=== PATIENT | female | born 1995 | race American Indian/Alaskan Native ===

== ENCOUNTER 2017-10-11 15:53 | Emergency (ER) | payer BC ==
[2017-10-11 17:50] LABS: Bilirubin,Urine NEG (Negative); Blood,Urine NEG (Negative); Ketones,Urine NEG (Negative); Leukocyte Esterase,Urine MOD (Negative); Mucus,Urine FEW /HPF; Nitrite,Urine NEG (Negative); Protein,Urine <15 mg/dL mg/dL (Negative); Urobilinogen,Urine < 2.0 mg/dL (<2.0)
[2017-10-11] MEDS ORDERED: MOTRIN PO ONE (17:58)
[2017-10-11 18:08] LABS: Hemoglobin 12.4 gm/dl (10.1-14.3); Mean Corpuscular HGB Conc 34 % (30-34); Mean Corpuscular Hemoglobin 31 pg (28-32); Mean Corpuscular Volume 91 fl (79-97); Red Blood Count 4.08 M/mm3 (3.65-5.03); Red Cell Distribution Width 13.2 % (13.2-15.2); White Blood Count 5.7 K/mm3 (4.5-11.0)
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
[2017-10-11 18:12] LABS: Basophils % (Auto) 0.6 % (0.0-1.8); Eosinophils % (Auto) 2.7 % (0.0-4.3)
[2017-10-11 18:13] LABS: Anion Gap 15 mmol/L; BUN/Creatinine Ratio 14; Blood Urea Nitrogen 11 mg/dL (7-17); Carbon Dioxide 28 mmol/L (22-30); Glucose 82 mg/dL (65-100); Potassium 4.3 mmol/L (3.6-5.0); Sodium 140 mmol/L (137-145)
[2017-10-11 18:37] VITALS: BP 104/66
[2017-10-11 18:39] LABS: Basophils % (Auto) 0.4 % (0.0-1.8); Hematocrit 35.7 % (30.3-42.9); Hemoglobin 12.3 gm/dl (10.1-14.3); Mean Corpuscular HGB Conc 34 % (30-34); Mean Corpuscular Hemoglobin 31 pg (28-32); Mean Corpuscular Volume 89 fl (79-97); Platelet Count 216 K/mm3 (140-440); Red Blood Count 4.01 M/mm3 (3.65-5.03); Red Cell Distribution Width 12.7 % (13.2-15.2); White Blood Count 7.2 K/mm3 (4.5-11.0)
== END 2017-10-11 19:35 | disposition home or self-care (01) ==
LOC: ED 15:53
DX: S13.4XXA Sprain of ligaments of cervical spine, initial encounter (principal); N39.0 Urinary tract infection, site not specified; R42 Dizziness and giddiness; V89.2XXA Person injured in unspecified motor-vehicle accident, traffic, initial encounter; Y93.9 Activity, unspecified; Y99.9 Unspecified external cause status; Y92.410 Unspecified street and highway as the place of occurrence of the external cause
CPT/HCPCS: 36415; 80048; 81001; 84703; 85025; 99283

== ENCOUNTER 2020-11-18 16:17 | Outpatient (CLI) | payer BC ==
[2020-11-18 17:43] LABS: Hepatitis B Surface Antigen Non-Reactive (Negative); Hepatitis C Virus Antibody Non-Reactive (NonReactive)
[2020-11-24 14:22] LABS: HIV-2 Antibody Differentiation SEE SCANNED RESULT
[2020-11-24 14:23] LABS: HIV-1 Antibody Differentiation SEE SCANNED RESULT
== END 2020-11-18 16:18 | disposition home or self-care (01) ==
LOC: LAB 16:17
DX: A74.9 Chlamydial infection, unspecified (principal); A54.9 Gonococcal infection, unspecified
CPT/HCPCS: 36415; 80074; 86592; 86689; 87591

== ENCOUNTER 2022-05-02 13:32 | Outpatient (CLI) | payer BC ==
--- NOTE | 2022-05-03 08:53 | Cat Scan Report ---
CT NECK WITH INTRAVENOUS CONTRAST AND MULTIPLANAR RECONSTRUCTION CLINICAL HISTORY: R59.0 SOFT TISSUE NECK TECHNIQUE: 2.5 mm thick contiguous axial scans were obtained from the skull base down to the aortic arch during intravenous contrast administration. In addition to evaluation of axial source images sagittal and co edy multiplanar reconstructions were produced and reviewed for this report. CONTRAST DOSE REPORT: : administered intravenously. All CT imaging studies performed at this facility utilize dose modulation, iterative reconstruction o r weight based dosing, if appropriate, to obtain the lowest achievable radiation dose. FINDINGS: Limitations: This is an incomplete study which does not include the aortic arch. History of enlarged lymph node on the neck is noted. There does not appear to have been placement of a skin marker to hamzah ntify the region of clinical concern. AIRWAY: No abnormalities are seen along the course of the airway. Nasopharynx, oropharynx, hypopharyn x, larynx and visualized portions of the subglottic airway all have an unremarkable appearance. LYMPH NODES: Borderline sized lymph nodes are seen in level 2 bilaterally. There is no indication of cervical lymphadenopathy. The site of clinical concern was not identified history provided or with th e aid of a skin marker. Correlation with the location of clinical concern is suggested. ORAL CAVITY/FLOOR OF MOUTH: No abnormalities are seen in evaluation of the oral cavity and tongue. Th e floor the mouth has a normal appearance. MAJOR SALIVARY GLANDS: The parotid and submandibular salivary glands have a normal appearance. NASAL CAVITY AND PARANASAL SINUSES: Evaluation of the nasal cavity reveals no abnormality. The parana louis sinuses are free from inflammatory mucosal disease. ORBITS:No abnormalities of the visualized portions of the orbits are identified. Globes, optic nerves , extraocular muscles and lacrimal glands have an unremarkable appearance. THYROID GLAND: The thyroid gland is normal in size and homogeneous in attenuation. No focal thyroid l esions are identified. TEMPORAL BONES:Mastoid air cells are normally pneumatized. CRANIOCERVICAL JUNCTION:No significant abnormality. CERVICAL SPINE: Evaluation of the cervical spine reveals no significant abnormality. Normal alignment is maintained. No significant degenerative changes are identified. LUNG APICES: Evaluation of the lung apices reveals no abnormality. There is no indication of lung nod ule or infiltrate. The visualized portions of the superior mediastinum have an unremarkable appearanc e. CONTRAST ADMINISTRATION: Enhancement of normal vascular structures is demonstrated. No areas of abnor mal contrast enhancement are identified. IMPRESSION: 1. No abnormalities are identified on CT neck with intravenous contrast. 2. History provided is enlarged cervical lymph node. The site of the reported lymph node is not ident ified by description or by the placement of a marker in the region of clinical concern. Correlation w ith the location of the clinically apparent abnormality is suggested. Signer Name: Rian Benavides MD Signed: 05/03/2022 8:49 AM Workstation Name: [id number]
== END 2022-05-02 13:33 | disposition home or self-care (01) ==
LOC: CT 13:32
PROVIDERS: ATTEND Otolaryngology
DX: R59.0 Localized enlarged lymph nodes (principal)
CPT/HCPCS: 70491; Q9967